=== PATIENT | female | born 1975 | race Caucasian/White ===

== ENCOUNTER 2019-01-29 13:39 | Emergency (ER) | payer OTHER ==
[~2019-01-29] VITALS: Ht 170.2 cm; Wt 104.3 kg
[2019-01-29 13:39] VITALS: BP 150/90
[2019-01-29] MEDS ORDERED: METHOCARBAMOL 500 MG TAB PO ONE (17:15)
[2019-01-29] MEDS ORDERED: KETOROLAC TROMETH 60MG/2ML VIAL IM ONE (17:15)
== END 2019-01-29 17:37 | disposition home or self-care (01) ==
LOC: EDBD 13:39 → ER 13:39
DX: S90.01XA Contusion of right ankle, initial encounter (principal); M79.601 Pain in right arm; R10.30 Lower abdominal pain, unspecified; Z98.51 Tubal ligation status; V49.49XA Driver injured in collision with other motor vehicles in traffic accident, initial encounter; Y93.89 Activity, other specified; Y99.8 Other external cause status; Y92.488 Other paved roadways as the place of occurrence of the external cause
CPT/HCPCS: 70450; 73130; 73610; 74176; 93005; 96372; 99284; J1885